=== PATIENT | female | born 1980 | race Caucasian/White ===

== ENCOUNTER 2023-08-12 18:40 | Emergency (ER) | payer BC ==
[~2023-08-12] VITALS: Ht 170.2 cm; Wt 167.8 kg
[~2023-08-12 18:40] MED LIST: AMOCLA875 PO; AZIT250 PO; BIRTH CONTROL PILL PO; Bactrim Ds Tab1 EACH PO; CEPH500 PO; CIPR500 PO; CYCL10 PO; Coumadin5 MG PO; EC-Naprosyn375 MG PO; ENOX80I; HYDACE10B PO; HYDACE5 PO; LORA10 PO; LORA10ER PO; LORPSEER12 PO; Levaquin500 MG PO; METHOCARBAMOL1000 MG PO; METPRE4DP PO; Mucinex600 MG PO; NAPR500 PO; OXYACE5T PO; OXYC10TA19 PO; PRED20 PO; Percocet 10-321 EACH PO; Prednisone20 MG PO; RXCYCL10 PO; RXHYDACE PO; XARELTO10 MG PO; ZANAFLEX413 PO
[2023-08-12 19:27] LABS: BASOPHILS ABSOLUTE AUTO 0.04 K/mm3 (0.00-0.23); BASOPHILS PERCENT AUTO 0 % (0-2); EOSINOPHILS ABSOLUTE AUTO 0.03 K/mm3 (0.00-0.68); EOSINOPHILS PERCENT AUTO 0 % (0-6); Hematocrit 39.9 % (33.0-51.0); IMMATURE GRAN ABSOLUTE AUTO 0.06 K/mm3 (0.00-0.10); IMMATURE GRAN PERCENT AUTO 1 % (0-1); LYMPHOCYTES ABSOLUTE AUTO 2.75 K/mm3 (0.84-5.20); LYMPHOCYTES PERCENT AUTO 22 % (21-46); MONOCYTES ABSOLUTE AUTO 0.65 K/mm3 (0.16-1.47); MONOCYTES PERCENT AUTO 5 % (4-13); Mean Corpuscular HGB 27.1 pg (26.0-34.0); Mean Corpuscular HGB Conc 32.6 g/dL (31.5-36.5); Mean Corpuscular Volume 83 fL (80-100); Mean Platelet Volume 9.5 fL (9.1-12.4); NEUTROPHILS ABSOLUTE AUTO 8.93 K/mm3 (1.96-9.15); NEUTROPHILS PERCENT AUTO 72 % (41-73); Platelet Count 307 K/mm3 (150-400); RDW Coefficient Variation 15.1 % (11.7-14.2); RDW Standard Deviation 45.7 fL (35.1-46.3); Red Blood Cell Count 4.79 M/mm3 (3.80-5.20); White Blood Cell Count 12.46 K/mm3 (4.00-11.30)
[2023-08-12 19:50] LABS: Albumin, Blood 3.2 g/dL (3.4-5.0); Albumin/Globulin Ratio 0.7 (0.8-1.8); Bilirubin, Total 0.4 mg/dL (0.1-1.0); Bun/Creatinine Ratio 11.8 (12.0-20.0); Calcium, Blood 8.7 mg/dL (8.5-10.1); Creatinine, Blood 0.68 mg/dL (0.40-1.00); Globulin, Blood 4.3 g/dL (2.2-4.0); Potassium, Blood 3.4 mmol/L (3.5-5.5); Total Protein, Blood 7.5 g/dL (6.4-8.2)
[2023-08-12] MEDS ORDERED: Ketorolac Tromethamine 30mg Vial IV ONE (22:05)
[2023-08-12] MEDS ORDERED: Ipratropium/Albuterol SulF 2.5-0.5MG/3 ML Amp INH ONE (22:15)
[2023-08-12] MEDS ORDERED: NS 1,000 ML IV SCH (22:25)
[2023-08-13 00:04] VITALS: BP 129/75
[2023-08-13] MEDS ORDERED: Albuterol 2.5 MG/3 ML VIAL INH SCH (01:00)
[2023-08-13] MEDS ORDERED: Dexamethasone Sod Phos 10 MG/ML 1ML VIAL IV ONE (01:45)
[2023-08-13] MEDS ORDERED: DEXA2 PO (02:07)
[2023-08-13] MEDS ORDERED: RX Prepack Albuterol 1 PREPACK/6.7 GM INH UD ONE (02:10)
== END 2023-08-13 02:25 | disposition home or self-care (01) ==
LOC: ER 18:40
PROVIDERS: Student in an Organized Health Care Education/Training Program
DX: U07.1 COVID-19 (principal); J20.8 Acute bronchitis due to other specified organisms; D68.51 Activated protein C resistance; Z88.2 Allergy status to sulfonamides; Z88.1 Allergy status to other antibiotic agents; Z91.040 Latex allergy status; Z79.899 Other long term (current) drug therapy; Z87.891 Personal history of nicotine dependence
CPT/HCPCS: 71046; 71260; 80053; 83880; 85025; 93005; 93010; 94640; 94644; 94664; 96361; 96374-59; 96375; 99285-25; A9270; J1100; J1885; J7030; Q9967

== ENCOUNTER → 2024-10-21 | Outpatient (CLI) | payer BC ==
[~2024-10-21] MED LIST changes: +DEXA2 PO
== END ==
LOC: LAB 10:32 → LAB SHORT 10:32
PROVIDERS: Family Medicine
DX: Z01.419 Encounter for gynecological examination (general) (routine) without abnormal findings (principal)
CPT/HCPCS: 87624; G0145